=== PATIENT | female | born 1975 | race Caucasian/White ===

== ENCOUNTER 2019-09-15 22:43 | Emergency (ER) | payer BC ==
[~2019-09-15] VITALS: Ht 162.6 cm; Wt 86.2 kg
--- OUTSIDE RECORDS SUMMARY | 2019-09-15 23:26 | XMS REPORT | Clinical Summary ---
Author Author ANTONY [facility] Organization [facility] Address Unknown Phone Unavailable Care Team Providers Care Supervisor Contingents Name Role Phone Pcp, No PCP Unavailable Allergies No Known Allergies Medications End Date Status Medication Sig Dispensed Refills Start Date Active promethazine-codeine 5 mLs daily . 0 (PHENERGAN WITH CODEINE) 9 6.25-10 mg/5 mL syrup Active predniSONE (DELTASONE) 20 Take 20 mg by 0 /2 7/201 MG tablet mouth daily. 8 Active acetaminophen-codeine Take 1 tablet 0 04/15/19 1 (TYLENOL #3) 300-30 mg by mouth 9 per tablet daily . Active amoxicillin-clavulanate Take 1 tablet 0 (AUGMENTIN) 875-125 mg by mouth 2 9 per tablet (two) times daily . Active EPINEPHrine (EPIPEN) 0.3 Inject 0.3 1 Device 0 0 mg/0.3 mL AtIn mLs (0.3 mg 9 total) intramuscular ly as needed. 04/15/2019 albuterol (PROVENTIL) 2.5 Take 3 mLs 75 mL 0 mg /3 mL (0.083 %) (2.5 mg 9 nebulizer solution total) by nebulization every 6 (six) hours as needed for Wheezing. Active Problems Not on file Social History Date Tobacco Use Types Packs/Day Years Used Current Every Day Smoker Cigarettes 0.5 Alcohol Use Drinks/Week oz/Week Comments No Sex Assigned at Date Recorded Not on file Industry Job Start Date Occupation Not on file Not on file Not on file Travel End Travel History Travel Start No recent travel history available. Last Filed Vital Signs Not on file Plan of Treatment Not on file Results Not on fileafter 09/14/2018 Insurance Payer Benefit Subscriber ID Type Phone Address Plan / Group BLUE CROSS/BLUE SHIELD BCBS OS xxxxxxxxxxxx PPO [phone] POS/PPO/[place] [address] O CIGNA - MGD CARE CIGNA xxxxxxxxx HMO/POS HMO/POS/OP EN ACCESS [phone] [id number] (Home) [place], [place] [address]
--- OUTSIDE RECORDS SUMMARY | 2019-09-15 23:26 | XMS REPORT | Continuity of Care Document ---
Author Author [facility] [place] [place] t Organization [facility] Address [address] [place] [address] Phone Unavailable Care Team Providers Care Pompom Maker Name Role Phone Pcp, No PCP Unavailable Abril MORGAN, Graham Poon Attphys [phone] Payers Payer Name Policy Type Policy Number Effective Date Expiration Date S [facility] BCBSBCBS OUT OF STATExxxxxxxxxxxx9-PresentPPO xxxxxxxxxxxx 2016 00:00:00 Calin Joel Problems Condition Name Condition Details Condition Category Status Onset Date Resolution Date Last Treatment Date Treating Clinician Comments Source Subclinical hyperthyroidism Subclinical hyperthyroidism Disease Active 2019-04-09 00:00:00 Calin Joel Multinodular goiter Multinodular goiter Disease Active 2019-01-26 00:00 :00 Calin Joel Abnormal results of thyroid function studies Abnormal results of thyroid function studies Disease Active 2019-01-26 00:00:00 Calin Joel Acute Pancreatitis Acut e Pancreatitis Active 11/28/2012 [facility] Problem Active 2012-11-28 16:49:24 [facility] Allergies, Adverse Reactions, Alerts Allergy Name Allergy Type Status Severity Reaction(s) Onset Date Inacti ve Date Treating Clinician Comments Source morphine DA Active U 2017-09-06 00:00:00 [facility] No Known Drug Allergies No Known Drug Allergies Active [facility] Family History Family Member Diagnosis Comments Start Date Stop Date Source Maternal aunt Breast cancer Calin Joel Maternal grandmother Breast cancer [facility] Natural mother Breast cancer [facility] Social History Social Habit Start Date Stop Date Quantity Comments Source History of tobacco use Cigarette Smoker [facility] History SDOH Alcohol Std Drinks [facility] History SDOH Alcohol Binge [facility] Sex Assigned At Александр mel [facility] Alcohol intake 2019-04-09 00:00:00 2019-04-09 00:00:00 Current drinker of alcohol (finding) [facility] History SDOH Alcohol Frequency 2019-01-26 00:00:00 2019-01-26 00:00:0 0 4 Calin Mccoyist Social History 2012-11-28 16:49:24 2012-11-28 16:49:24 [facility] Cigarettes smoked current (pack per day) - Reported 00:00:00 2012-09-20 00:00:00 [facility] Smoking Status Start Date Stop Date Source Current some day smoker 2019-04-09 00:00:00 Vane Joel Current every day smoker 2012-09-20 00:00:[address] [facility] Medications Ordered Medication Name Filled Medication Name Start Date Stop Da te Current Medication? Ordering Clinician Indication Dosage Frequency Signature (SIG) Comments Components Source dexAMETHasone (DECADRON) 1 MG tablet 2019-04-09 00:00: 00 2019-04-09 23:59:00 No Endocrine problem 1mg Take 1 tab let (1 mg total) by mouth once for 1 dose. Take 1 mg dexamethasone at 11 PM and check cortisol level next day at 8 AM Calin Joel EPINEPHrine (EPIPEN) 0.3 mg/0.3 mL AtIn 2018-04-15 00:00:00 Yes .3mg Inject 0.3 mLs (0.3 mg total) intramuscularly as needed. [facility] albuterol (PROVENTIL) 2.5 mg /3 mL (0.083 %) nebulizer solut ion 2018-04-15 00:00:00 2019-04-15 23:59:00 No 2.5mg Take 3 mLs (2.5 mg total) by nebulization every 6 (six) hours as needed for Wheezing. [facility] promethazine-codeine (PHENERGAN WITH CODEINE) 6.25-10 mg/5 m L syrup 2018-04-14 00:00:00 Yes 5mL QD 5 mLs daily . [facility] acetaminophen-codeine (TYLENOL #3) 300-30 mg per tablet 2018-04-14 00:00:00 Yes 1{tbl} QD Take 1 tablet by mouth daily . [facility] amoxicillin-clavulanate (AUGMENTIN) 875-125 mg per tablet 2018-04-14 00:00:00 Yes 1{tbl} Q.5D Take 1 tablet by mouth 2 (two) t imes daily . [facility] predniSONE (DELTASONE) 20 MG tablet 2018-01-07 00:00:00 Yes 20mg QD Take 20 mg by mouth daily. [facility] Hydrocodone-Acetaminophen 5-325 MG Oral Tablet 2012-11-28 05:00: 00 Yes ; Start Date: 11/28/2012 (Active) Diane Jackson No Active Medications 2012-11-07 18:48:09 Yes No Active Medications [facility] Vital Signs Vital Name Observation Time Observation Value Comments Source Systolic blood pressure 2019-04-09 08:37:00 123 mm[Hg] Calin Joel Diastolic blood pressure 2019-04-09 08:37:00 86 mm[Hg] Calin Joel Heart rate 2019-04-09 08:37:00 80 /min Calin Joel Body temperature 2019-04-09 08:37:00 36.61 Alice Vane Joel Respiratory rate 2019-04-09 08:37:00 14 /min Vane Joel Body height 2019-04-09 08:37:00 162.6 cm Calin Joel Body weight 2019-04-09 08:37:00 94.802 kg Calin Joel BMI 2019-04-09 08:37:00 35.87 kg/m2 Calin Joel Oxygen saturation in Arterial blood by Pulse oximetry 04-09 08:37:00 97 /min [place] [facility] Procedures Procedure Date / Time Performed Performing Clinician Sourc e ADRENOCORTICOTROPIC HORMONE 2019-04-13 08:17:00 Cleve Samuels CORTISOL LEVEL, AM 2019-04-13 08:17:00 Cleve Samuelston [facility] HEMOGLOBIN A1C 2019-04-13 08:17:00 Cleve Samuels on [facility] CORTISOL LEVEL, URINE, FREE 2019-04-12 09:00:00 Cleve Samuels THYROID STIMULATING HORMONE 2019-03-31 11:29:00 Cleve Samuels T4, FREE 2019-03-31 11:29:00 Cleve Samuels on [facility] T3 2019-03-31 11:29:00 Cleve Samuels on [facility] THYROID PEROXIDASE ANTIBODY 2019-03-31 11:29:00 Cleve Samuels T4 2019-03-31 11:19:00 Cleve Samuels on [facility] US THYROID BIOPSY FNA 2019-03-31 11:07:23 Cleve Samuels BRAF, PCR 2019-03-31 11:03:00 Cleve Samuels on [facility] CYTOLOGY (NON-GYNECOLOGICAL) REQUEST 2019-03-31 11:03:00 Cleve Samuels THYROID STIMULATING IMMUNOGLOBULIN 2019-03-31 00:00:00 Bud Samuels US THYROID EXTERNAL STUDY 2018-12-09 16:30:00 Cleve Samuels Plan of Care Planned Activity Planned Date Details Comments Source Future Scheduled Test 2022-03-31 00:00:00 Screening for esme gnant neoplasm of cervix (procedure) [code = 211690788] Calin oglesby Future Scheduled Test 2019-09-12 00:00:00 INFLUENZA VACCINE [code = INFLUENZA VACCINE] Calin Joel Future Scheduled Test 2012-11-28 16:49:24 Plan of Care [code = 1877 6-5] [facility] Encounters Start Date/Time End Date/Time Encounter Type Admission Type [facility] Care Department Encounter ID Source 2019-04-09 00:00:2019-04-09 00:00:00 Outpatient [facility] [id number] Calin Joel 2019-03-31 00:00:00 2019-03-31 00:00:00 Outpatient [facility] [id number] Calin Joel 2019-02-19 00:00:00 2019-02-19 00:00:00 Outpatient [facility] [id number] Calin Joel 2012-11-28 11:49:24 2012-11-28 11:49:24 Outpatient NOEMI NOEMI [id number] 2012-11-07 13:48:10 2012-11-07 13:48:09 [id number] Results Test Description Test Time Test Comments Results Result Comments Source - HEPA IMAG INCL GB W PHA 2019-08-06 15:23:00 Patient Name: FELICITA BARLOW Unit No: [id number] EXAMS: CPT CODE: [id number] HEPA IMAG INCL GB W PHA [id number] EXAMINATION: - HEPA IMAG INCL GB W PHA. LOCATION: B2. HISTORY: R10.9, R1 9.7. COMPARISON: HIDA scan dated 09/07/2017. TECHNIQUE: 8.0 mCi technetium 99m Mebrofenin was administered intravenously. Dynamic imaging over the abdomen was performed in the anterior projection. 8 ounces of Ensure was then given orally and imaging continued for 30 minutes. Gallbladder emptying time activity curves were generated and gallbladder ejection fraction was calculated. FINDINGS: There is good concentration of radiopharmaceutical by the hepatocytes with good excretion into the small bowel and gallbladder indicative of patent common bile duct and cystic duct. The gallbladder ejection fraction is 60%. IMPRESSION: Patent cystic and common bile ducts with no scintigraphic evidence of acute cholecystitis. Normal gallbladder ejection fraction. at 1523 Reported and signed by: Alejandro Canada MD Nuclear Medicine Cardiology exams performed on dual head cameras with appropriate software for processing and reporting. CC: Isidro Espinal [facility] NAME: FELICITA BARLOW [address] [place] [address] PHYS: Isidro R[place]Mer[place], [place] : 1975 AGE: 44 SEX: F [id number] LOC: [id number] PHONE #: EXAM DATE: 08/06/2019 STATUS: REG CLI FAX #: [phone] RAD NO: DC Dt: PAGE 1 Signed Report Patient Name: FELICITA BARLOW Unit No: [id number] EXAMS: CPT CODE: [id number] HEPA IMAG INCL GB W PHA [id number] <Continued> Technologist: Mali Rich [facility] Transcribed Date/Time: 08/06/2019 (0427) - [email or web address] Orig Print D/T: S: 08/06/2019 (5593) 250 Imaging NAME: FELICITA BARLOW [address] [place] [address] PHYS: Isidro R[place]Mer[place], [place] : 1975 AGE: 44 SEX: F [phone] LOC: [id number] PHONE #: [phone] EXAM DATE: 08/06/2019 STATUS: REG CLI FAX #: [phone] RAD NO: DC Dt: PAGE 2 Signed Report Cortisol level, urine, free 2019-04-17 12:09:00 Test Item Cortisol, F, ug/l, u (test code = 61845-0) 6 ug/L Undefined This test was developed and its performance characteristicsdetermined by [facility]. It has not been cleared or approvedby the Food and Drug Administration.Total Volume: 2200 mL Cortisol, F, ug/24hr. u (test code = 2147-7) 13 6- 42 ug/ 24 hr JAYDEN (test code = JAYDEN) Performed at: [address] [place] [address] [id number] Director: Denisa Santos MD, Phone: [phone] [facility]emoglobin [id number] 13:08:00* Test Item Value Reference Range Interpretation Comments Hemoglobin A1C (test code = 4548-4) 5.5 % 4.8-5.6 Prediabetes: 5.7 - 6.4 Diabetes: >6.4 Glycemic control for adults with diabetes: <7.0 JAYDEN (test code = JAYDEN) Performed at: [address] [place] [address] [id number] Director: Altaf Brown MD, Phone: [phone] [facility] MethodistAdrenocorticotropic [id number] 13:08:00* Test Item Value Reference Range Interpretation Comments Adrenocorticotropic hormone (test code = 2141-0) 24.3 pg/mL 7.2-6 3.3 ACTH reference interval for samples collected between 7 and 10 AM. JAYDEN (test code = JAYDEN) Performed at: [address] [place] [address] [id number] Director: Altaf Brown MD, Phone: [phone] [facility] MethodistCortisol level, [id number] 13:08:00* Test Item Value Reference Range Interpretation Comments Cortisol, AM (test code = 9813-7) 24.5 ug/dL 6.2-19.4 H JAYDEN (test code = JAYDEN) Performed at: [address] [place] [address] [id number] Director: Altaf Brown MD, Phone: [phone] Lab Interpretation (test code = 48366-2) Abnormal [facility] MethodistCytology (non-gynecological) [id number] 15:36:45* Test Item Value Reference Range Interpretation Comments Case number (test code = [id number]) [id number] Cytology (non-gynecological) report (test code = 1178) See link below for PDF Lab Report Result status (test code = 5128935) This is Supplement al Report for [id number] aClin Hahn, [id number] 13:46:32* Test Item Value Reference Range Interpretation Comments BRAF, PCR (test code = 29307-6) Wild Type BRAF, PCR (test code = 5761) See link below for PDF Lab Report JAYDEN (test code = JAYDEN) METHODOLOGY:For surgical spe cimens, manual microdissection was performed on a cytolyt specimen. Specimens with the minimum of 50% tumor cells in a microdissection target are accepted for the analysis. DNA was amplified with primers flanking the reported gene sequences. DNA sequences were determined on the [employer] MassARRAY using MALDI-TOF mass spectrometry. [facility] MethodistThyroid stimulating [id number] 07:09:00* Test Item Value Reference Range Interpretation Comments Thyroid stimulating immunoglobulin (test code = 28259-5) <0.10 0.00- 0.55 IU/L JAYDEN (test code = JAYDEN) Performed at: [address] [place] [address] [id number] Director: Denisa Santos MD, Phone: [phone] [facility] YazdanismT4, [id number] 10:10:00* Test Item Value Reference Range Interpretation Comments T4, free (test code = 3024-7) 1.70 ng/dL 0.82-1.77 JAYDEN (test code = JAYDEN) Performed at: [address] [place] [address] [id number] Director: Altaf Brown MD, Phone: [phone] [facility] MethodistThyroid stimulating [id number] 10:10:00* Test Item Value Reference Range Interpretation Comments TSH (test code = 65501-9) 0.295 0.450- 4.500 uIU/mL L JAYDEN (test code = JAYDEN) Performed at: [address] [place] [address] [id number] Director: Altaf Brown MD, Phone: [phone] Lab Interpretation (test code = 60414-0) Abnormal [facility] [id number] 10:10:00* Test Item Value Reference Range Interpretation Comments T3 (test code = 3053-6) 135 ng/dL 71-180 JAYDEN (test code = JAYDEN) Performed at: - [facility] [id number] Director: Altaf Brown MD, Phone: [phone] [facility] YazdanismThyroperoxidase [id number] 10:10:00* Test Item Value Reference Range Interpretation Comments Thyroperoxidase Ab (test code = 8099-4) 9 0- 34 IU/mL JAYDEN (test code = JAYDEN) Performed at: [facility] [id number] Director: Altaf Brown MD, Phone: [phone] [facility]danismUS Thyroid Biopsy [id number] 11:16:40Hm Interface, Radiology Results 03/31/2019 11:19 AM CSTProcedure: Ultrasound-guided left thyroid nodule biopsyClinical indication: E04.2 Nontoxic multinodular goiterAnesthesia: Lidocaine 1% was used for local anesthetic.Sedation: None.Technique: Written informed consent was obtained prior to the procedure. T he patient was placed in a supine position and ultrasound imaging over the left lobe of the thyroid gland was performed, demonstrating a heterogeneous solid nod ule measuring 1.4 cm in greatest dimension. The left neck was sterilely prepared and draped in the routine manner. Lidocaine 1% was used for local anesthetic. U sing real-time ultrasound guidance, fine-needle aspirations were obtained from t he left thyroid nodule with five 25-gauge needles. Initial analysis by pathology deemed the specimens adequate. The patient tolerated the procedure well.Complic ations: NoneImpression: Successful ultrasound-guided left thyroid nodule biopsy, as described above.[id number] [facility] Thyroid External Study 2019-02-26 09:08:25This exam was not acquired at a [facility] facility and has not been interpreted by a [facility] Provider. The exam was imported into our imaging system.[facility] DariusistRRO, CHEST, 2 [id number] 18:53:00Reason for exam:->coughFINAL REPORT INDICATION: cough COMPARISON: None TECHNIQUE: Frontal and lateral views of the chest. FINDINGS: Lungs and pleura: Clear lungs. No effusion.Heart and mediastinum: Normal heart size. Unremarkable mediastinal contours.Osseous structures: No acute abnormality.Additional findings: None. IMPRESSION: No acute intrathoracic abnormality. Signed: JR Argueta Robert MDReport Verified Date/Time: 04/15/2018 18:53:38 Reading Location: [facility] B1 C013V Neuro Reading Room U/S, ABDOMINAL, [id number] 13:39:00Reason for Exam:->Abnormal results of liver function studiesFINAL REPORT Abdominal ultrasound Clinical History: Abnormal liver function test Discussion: Sonographic evaluation of the the abdomen is performed. The liver has normal size and measures 17.7 cm in length. There is elevated liver echogenicity, without focal mass. There is no intra or extrahepatic biliary dilatation. The common bile duct measures 3 mm. The gallbladder has normal appearance, without wall thickening, stones, or pericholecystic fluid. The main portal vein diameter is normal, measuring 11 mm. The pancreatic head, body, and proximal tail demonstrate no abnormality. There is no ascites. The right and the left kidney measure 10.0 and 10.8 cm in length respectively and are normal in size. There is no renal mass, hydronephrosis, or shadowing renal calculus. The spleen measures 7.6 cm in length and is normal in echotexture. Segments of the inferior vena cava and aorta visualized demonstrate no abnormality. Impression: 1. Elevated liver echogenicity most consistent with fatty infiltration. 2. The hepatic elasticity is 1.41 m/s which corresponds to normal to mild fibrosis. Signed: Maritza Arreguinort Verified Date/Time: 01/08/2018 13:39:52 Reading Location: [facility] Radiology Reading Room
--- OUTSIDE RECORDS SUMMARY | 2019-09-15 23:26 | XMS REPORT | Continuity of Care Document ---
Author Author [facility] Organization [facility] Address Unknown Phone Unavailable Care Team Providers Care Maintenance Scheduler Name Role Phone [employer] Unavailable Un available Problems Problem Status Onset Date Classification Date Reported Comments Source Acute Pancreatitis Active 11/28/2012 [facility] Medications Medication Details Route Status Patient Instructions Ordering Provider Order Date Source Hydrocodone-Acetaminophen 5-325 MG Oral Tablet ; Start Date: 11/28/2012 (Active) Active 11/28/2012 [facility] No Active Medications No Activ e Medications Active [facility] Allergies, Adverse Reactions, Alerts Substance Category Reaction Severity Reaction type Status Date Reported Comments Source No Known Drug Allergies drug a llergy drug aller gy Active [facility] Immunizations No Data Provided for This Section Results No Data Provided for This Section Pathology Reports No Data Provided for This Section Diagnostic Reports No Data Provided for This Section Consultation Notes No Data Provided for This Section Discharge Summaries No Data Provided for This Section History and Physicals No Data Provided for This Section Vital Signs No Data Provided for This Section Encounters Location Location Details Encounter Type Encounter Number Reason For Visit Attending Provider ADM Date DC Date Status Source AUDIT [id number] 11/07/2012 11/07/2012 [facility] AUDIT [id number] 11/28/2012 11/28/2012 [facility] Procedures No Data Provided for This Section Assessment and Plan No Data Provided for This Section Plan of Care Plan of Care Date Source [U] XRAY ABDOMEN (KUB) 1 [place] [address] Routine 11/28/2012 [facility] Social History Social History Date Source Current Smoker (305.1); (Active) 11/28/2012 [facility] Family History No Data Provided for This Section Advance Directives Order Name Results Value Date Source Advance Directives Advance Dir ectives No Advance Directives available. 11/28/2012 [facility] Advance Directives Advance Dir ectives No Advance Directives available. 11/07/2012 [facility] Functional Status No Data Provided for This Section
--- OUTSIDE RECORDS SUMMARY | 2019-09-15 23:26 | XMS REPORT | Clinical Summary ---
Author Author Calin [facility] Organization [facility] Address Unknown Phone Unavailable Care Team Providers Care Cytotechnologist/Histotechnologist Name Role Phone Angel Gong PCP Allergies No Known Allergies Medications End Date Status Medication Sig Dispensed Refills Start Date 04/09/2019 dexAMETHasone (DECADRON) Take 1 tablet 1 tablet 0 1 MG tabletIndications: (1 mg total) 0 Abnormal weight gain, by mouth once Endocrine problem for 1 dose. Take 1 mg dexamethasone at 11 PM and check cortisol level next day at 8 AM Active Problems Problem Noted Date Subclinical hyperthyroidism 04/09/2019 Multinodular goiter 01/26/2019 Abnormal results of thyroid function studies 019 Encounters Care Team Description Date Type Specialty Cleve Samuels MD 05/07/2019 Telephone Endocrinology Cleve Samuels MD 04/13/2019 Telephone Endocrinology Cleve Samuels MD Multinodular goiter (Primary Dx); Subclinical hyperthyroidism; Abnormal weight gain; Endocrine problem; History of gestational diabetes 04/09/2019 Office Visit Endocrinology Cleve Samuels MD 04/02/2019 Telephone Endocrinology Cleve Samuels MD Multinodular goiter 03/31/2019 Hospital Radiology Encounter Cleve Samuels MD Multinodular goiter 02/19/2019 Hospital Radiology Encounter Cleve Samuels MD Multinodular goiter (Primary Dx); Abnormal results of thyroid function studies 01/26/2019 Office Visit Endocrinology after 09/14/2018 Family History Medical History Relation Name Comments Breast cancer Maternal Aunt Breast cancer Maternal Grandmother Breast cancer Mother Relation Name Status Comments Maternal Aunt Maternal Grandmother Mother Social History Date Tobacco Use Types Packs/Day Years Used Current Some Day Smoker Smokeless Tobacco: Never Used Drinks/Week oz/Week Comments Alcohol Use Yes Alcohol Habits Answer Date Recorded How often do you have a drink containing alcohol? 2-3 time s a week 01/26/2019 How many drinks containing alcohol do you have on No t asked a typical day when you are drinking? How often do you have six or more drinks on one Not asked occasion? Sex Assigned at Date Recorded Not on file Industry Job Start Date Occupation Not on file Not on file Not on file Travel End Travel History Travel Start No recent travel history available. Last Filed Vital Signs Reading Time Taken Comments Vital Sign 123/86 04/09/2019 8:37 AM SCIENTIFIC ILLUSTRATOR Blood Pressure 80 04/09/2019 8:37 AM SCIENTIFIC ILLUSTRATOR Pulse 36.6 C (97.9 F) 04/09/2019 8:37 AM SCIENTIFIC ILLUSTRATOR Temperature 14 04/09/2019 8:37 AM SCIENTIFIC ILLUSTRATOR Respiratory Rate 97% 04/09/2019 8:37 AM SCIENTIFIC ILLUSTRATOR Oxygen Saturation - - Inhaled Oxygen Concentration 94.8 kg (209 lb) 04/09/2019 8:37 AM SCIENTIFIC ILLUSTRATOR Weight 162.6 cm (5' 4") 04/09/2019 8:37 AM SCIENTIFIC ILLUSTRATOR Height 35.87 04/09/2019 8:37 AM SCIENTIFIC ILLUSTRATOR Body Mass Index Plan of Treatment Health Maintenance Due Date Last Done Comments INFLUENZA VACCINE 09/12/2019 CERVICAL CANCER SCREENING 03/31/2022 03/31/2019, 03/31/2019, 03/31/2019 Procedures Comments Procedure Name Priority Date/Time Associated Diag nosis HEMOGLOBIN A1C Routine 04/13/2019 History of gest ational 8:17 AM SCIENTIFIC ILLUSTRATOR diabetes CORTISOL LEVEL, AM Routine 04/13/2019 Abnormal we ight gain 8:17 AM SCIENTIFIC ILLUSTRATOR Endocrine problem ADRENOCORTICOTROPIC Routine 04/13/2019 Abnormal w eight gain HORMONE 8:17 AM SCIENTIFIC ILLUSTRATOR Endocrine problem CORTISOL LEVEL, URINE, Routine 04/12/2019 Abnorma l weight gain FREE 9:00 AM SCIENTIFIC ILLUSTRATOR Endocrine problem THYROID PEROXIDASE Routine 03/31/2019 Multinodula r goiter ANTIBODY 11:29 AM SCIENTIFIC ILLUSTRATOR Abnormal results of thyroid function studies T3 Routine 03/31/2019 Multinodular go iter 11:29 AM SCIENTIFIC ILLUSTRATOR Abnormal results of thyroid function studies T4, FREE Routine 03/31/2019 Multinodular go iter 11:29 AM SCIENTIFIC ILLUSTRATOR Abnormal results of thyroid function studies THYROID STIMULATING Routine 03/31/2019 Multinodul ar goiter HORMONE 11:29 AM SCIENTIFIC ILLUSTRATOR T4 Routine 03/31/2019 Multinodular go iter 11:19 AM SCIENTIFIC ILLUSTRATOR Abnormal results of thyroid function studies US THYROID BIOPSY FNA Routine 03/31/2019 Multinod ular goiter 11:07 AM SCIENTIFIC ILLUSTRATOR CYTOLOGY Routine 03/31/2019 (NON-GYNECOLOGICAL) 11:03 AM SCIENTIFIC ILLUSTRATOR REQUEST CYTOLOGY Routine 03/31/2019 (NON-GYNECOLOGICAL) 11:03 AM SCIENTIFIC ILLUSTRATOR REQUEST CYTOLOGY Routine 03/31/2019 (NON-GYNECOLOGICAL) 11:03 AM SCIENTIFIC ILLUSTRATOR REQUEST BRAF, PCR Routine 03/31/2019 11:03 AM SCIENTIFIC ILLUSTRATOR THYROID STIMULATING Routine 03/31/2019 Multinodul ar goiter IMMUNOGLOBULIN 12:00 AM SCIENTIFIC ILLUSTRATOR Abnormal results of thyroid function studies US THYROID EXTERNAL STUDY Routine 12/09/2018 Mult inodular goiter 4:30 PM CDT after 09/14/2018 Results * Cortisol level, AM (04/13/2019 8:17 AM SCIENTIFIC ILLUSTRATOR) Cortisol, AM 24.5 (H) 6.2 - 19.4 ug/dL [facility] Specimen Blood Narrative Performed At Performed at: [facility] [address] Senior Engineer: Altaf Brown MD, Phone: [phone] Performing Organization Address City/State/[facility] Ph one Number [facility] * Adrenocorticotropic hormone (04/13/2019 8:17 AM SCIENTIFIC ILLUSTRATOR) Adrenocorticotr 24.3Comment: ACTH reference 7.2 - 63.3 pg/mL [facility] opic hormone interval for samples collec amanda between 7 and 10 AM. Specimen Blood Narrative Performed At Performed at: Lab[address] [address] Senior Engineer: Altaf Brown MD, Phone: [phone] Performing Organization Address [facility] * Hemoglobin A1c (04/13/2019 8:17 AM SCIENTIFIC ILLUSTRATOR) [facility] Hemoglobin A1C 5.5 4.8 - 5.6 % [facility] Comment: Prediabetes: 5.7 - 6.4 Diabetes: >6.4 Glycemic control for adults with diabetes: <7.0 Specimen Blood Narrative Performed At Performed at: [address] [address] Senior Engineer: Altaf Brown MD, Phone: [phone] Performing Organization Address [facility] * Cortisol level, urine, free (04/12/2019 9:00 AM SCIENTIFIC ILLUSTRATOR) [facility] Cortisol, F, 6 Undefined ug/L [facility] ug/l, u Comment: This test was developed and its performance characteristics determined by [facility]. It has not been cleared or approved by the Food and Drug Administration. Total Volume: 2200 mL Cortisol, F, 13 6 - 42 ug/24 hr [facility] ug/24hr. u Specimen Urine Narrative Performed At Performed at: [address] [address] Senior Engineer: Denisa Santos MD, Phone : [phone] Performing Organization Address [facility] * Thyroperoxidase antibody (03/31/2019 11:29 AM SCIENTIFIC ILLUSTRATOR) [facility] Thyroperoxidase 9 0 - 34 IU/mL [facility] Ab Specimen Blood Narrative Performed At Performed at: [address] [address] Senior Engineer: Altaf Brown MD, Phone: [phone] Performing Organization Address [facility] * T3 (03/31/2019 11:29 AM SCIENTIFIC ILLUSTRATOR) [facility] T3 135 71 - 180 ng/dL [facility] Specimen Blood Narrative Performed At Performed at: - [facility] [address] [address] Senior Engineer: Altaf Brown MD, Phone: [phone] Performing Organization Address [place]/[facility] one Number [facility] * Thyroid stimulating hormone (03/31/2019 11:29 AM SCIENTIFIC ILLUSTRATOR) TSH 0.295 (L) 0.450 - 4.500 uIU/mL [facility] Specimen Blood Narrative Performed At Performed at: [address] [address] Senior Engineer: Altaf Brown MD, Phone: [phone] Performing Organization Address [place] * T4, free (03/31/2019 11:29 AM SCIENTIFIC ILLUSTRATOR) T4, free 1.70 0.82 - 1.77 ng/dL [facility] Specimen Blood Narrative Performed At Performed at: [address] [id number] Senior Engineer: Altaf Brown MD, Phone: [phone] Performing Organization Address [facility] one Number [facility] * T4 (03/31/2019 11:19 AM SCIENTIFIC ILLUSTRATOR) T4 9.7 4.5 - 12.0 ug/dL [facility] Specimen Blood Narrative Performed At Performed at: [address] [id number] Senior Engineer: Altaf Brown MD, Phone: [phone] Performing Organization Address [facility] * US Thyroid Biopsy FNA (03/31/2019 11:07 AM SCIENTIFIC ILLUSTRATOR) Specimen Narrative Performed At Procedure: Ultrasound-guided left thyroid nodule biop sy [facility] Clinical indication: E04.2 Nontoxic mul tinodular goiter Anesthesia: Lidocaine 1% was used for l ocal anesthetic. Sedation: None. Technique: Written informed consent was obtained prior to the procedure. The patient was placed in a supine position and ultrasound imaging over the left lobe of the thyroid gland was performed , demonstrating a heterogeneous solid nodule measuring 1.4 cm in greatest dimension. The left neck wa s sterilely prepared and draped in the routine manner. Lidocaine 1% was used f or local anesthetic. Using real-time ultrasound guidance, fine-needle aspira tions were obtained from the left thyroid nodule with five 25-gauge needles. Initial analysis by p athology deemed the specimens adequate. The patient tolerated the procedure wel l. Complications: None Impression: Successful ultrasound-guided left thyro id nodule biopsy, as described above. [id number] Procedure Note Interface, Radiology Results Incoming - 03/31/2019 11:19 AM SCIENTIFIC ILLUSTRATOR Procedure: Ultrasound-guided left thyroid nodule biopsy Clinical indication: E04.2 Nontoxic multinodular goiter Anesthesia: Lidocaine 1% was used for local anesthetic. Sedation: None. Technique: Written informed consent was obtained prior to the procedure. The patient was placed in a supine position and ultrasound imaging over the left lobe of the thyroid gland was performed, demonstrating a heterogeneous solid nodule measuring 1.4 cm in greatest dimension. The left neck was sterilely prepared and draped in the routine manner. Lidocaine 1% was used for local anesthetic. Using real-time ultrasound guidance, fine-needle aspirations were obtained from the left thyroid nodule with five 25-gauge needles. Initial analysis by chance thology deemed the specimens adequate. The patient tolerated the procedure well. Complications: None Impression: Successful ultrasound-guided left thyroid nodule biopsy, as described above. [facility]-[id number] Performing Organization Address [place]/[facility] [place] [address] * BRAF, PCR (03/31/2019 11:03 AM SCIENTIFIC ILLUSTRATOR) BRAF, PCR Wild Type [facility] BRAF, PCR See link below for PDF [facility] ReportComment: Case Number: [id number] Specimen Narrative Performed At METHODOLOGY: [facility] For surgical specimens, manual microdissection was pe rformed on a [facility] specimen. Specimens with the minimum of 50% tumor cells in a microdissection target are accepted for the analysis. D NA was amplified with primers flanking the reported gene sequences. DNA sequences were determine d on the [employer] MassARRAY using MALDI-TOF mass spectrometry. Performing Organization Address [place] Ph one Number [facility] DEPARTMENT OF [address] [place] [address] PATHOLOGY AND GENOMIC MEDICINE [address] * Cytology (non-gynecological) request (03/31/2019 11:03 AM SCIENTIFIC ILLUSTRATOR) Only the most recent of 3 results within the time period is included. [facility] DEPARTMENT OF PATHOLOGY AND GENOMIC MEDICINE Cytology See link below for PDF Lab T DEPAR TMENT (non-gynecologi Report OF PATHOLOGY juan m) report AND GENOMIC MEDICINE Result status This is Supplemental Report [facility] DEPA RTMENT for [id number] OF PATHOLOGY AND GENOMIC MEDICINE Specimen Performing Organization Address City/State/[facility] Ph one Number [facility] [place] [address], [address] [place] [address] PATHOLOGY AND GENOMIC MEDICINE * Thyroid stimulating immunoglobulin (03/31/2019 12:00 AM SCIENTIFIC ILLUSTRATOR) Thyroid <0.10 0.00 - 0.55 IU/L [facility] stimulating immunoglobulin Specimen Blood Narrative Performed At [facility]formed at[facility] - [facility] [address] [place] [id number] Senior Engineer: Denisa Santos MD, Phone : [phone] Performing Organization Address City/State/Zipcode Ph one Number [facility] * US Thyroid External Study (12/09/2018 4:30 PM CDT) Specimen Narrative Performed At This exam was not acquired at a Confucianist facility an d has not been [facility] interpreted by a Confucianist Provider. The exam was imported into our imaging system. Performing Organization Address City/State/Zipcode Ph one Number [facility] [address] [place] [address] after 09/14/2018 Insurance Type Payer Benefit Subscriber ID Effective Phone Address Plan / Dates Group PPO BCBS BCBS OUT xxxxxxxxxxxx 2016-P OF STATE resent Advance Directives For more information, please contact: [phone] Patient Office Worker Explanation Type Date Recorded Advance Directives, 03/31/2019 9:31 AM Living Will and Medical Power of Media Senior Recruiter
--- OUTSIDE RECORDS SUMMARY | 2019-09-15 23:26 | XMS REPORT ---
Author Author FELICITA Pimentel Organization Unknown Address Unknown Phone Care Team Providers Care Rug Sample Beveler Name Role Phone Brandi Pimentel PP Reason for Referral No Reason for Referral was given. History of Present Illness No HPI available. Problems * Normal Routine History And Physical Adult (V70.0); (Active) * Acute Pancreatitis (577.0); (Active) Medication * No Active Medications Allergies and Adverse Reactions * No Known Drug Allergies (Active) Past Medical History * No Significant Medical History Social History * Current Smoker (305.1); (Active) Advance Directives * No Advance Directives available. Encounters * AUDIT 11/07/2012
[2019-09-15] MEDS ORDERED: ONDANSETRON HCL INJ 2MG/ML 2ML 2 MG/ML VIAL IV STA (23:43)
[2019-09-15] MEDS ORDERED: SODIUM CHLORIDE 0.9% 1000ML 1,000 ML IV STA (23:43)
[2019-09-15] MEDS ORDERED: MORPHINE SULFATE INJ 4 MG/ML INJ 1ML IV STA (23:43)
--- NOTE | 2019-09-15 23:47 | Emergency Department Note ---
History of Present Illnes History of Present Illness Chief Complaint: Abdominal Complaints History of Present Illness This is a 44 year old female RUQ pain of 5 days duration with n/v/d Patient reports h/o of chronic RUQ pain in the past and has been seen by PCP for same Action Finisher Required: No Onset (how long ago): day(s) (6) Location: RUQ Quality: aching Radiation: Reports non-radiation Severity: moderate Onset quality: gradual Duration (how long): day(s) (5) Timing of current episode: constant Progression: worsening Chronicity: recurrent Relieving factors: none Exacerbating factors: none Associated symptoms: Reports nausea/vomiting; Denies fever/chills Treatments prior to arrival: none (TOM CRUZ DO) Past Medical/Family History Physician Review I have reviewed the patient's past medical and family history. Any updates have been documented here. (TOM CRUZ DO) Past Medical History Recent Fever: No Clinical Suspicion of Infectio: No New/Unexplained Change in Ment: No (TOM CRUZ DO) Social History Smoking Cessation: Current some day smoker Counseling Performed: Yes Alcohol Use: None (TOM CRUZ DO) Review of Systems Review of Systems Constitutional: Reports no symptoms EENTM: Reports no symptoms Cardiovascular: Reports no symptoms Respiratory: Reports no symptoms Gastrointestinal: Reports abdominal pain, Reports nausea, Reports vomiting Genitourinary: Reports no symptoms Musculoskeletal: Reports no symptoms Integumentary: Reports no symptoms Neurological: Reports no symptoms Psychological: Reports no symptoms Endocrine: Reports no symptoms Hematological/Lymphatic: Reports no symptoms (TOM CRUZ DO) Physical Exam Related Data Allergies: Coded Allergies: No Known Allergies (Unverified , 09/16/19) Triage Vital Signs Vital Signs Date Time Temp Pulse Resp B/P (MAP) Pulse Ox O2 Delivery O2 Flow Rate FiO2 09/15/19 22:47 98.0 82 17 134/92 100 Room Air Vital signs reviewed: Yes (TOM CRUZ DO) Physical Exam CONSTITUTIONAL Constitutional: Present morbidly obese HENT HENT: Present normocephalic, Present atraumatic, Present oropharynx clear/moist, Present nose normal HENT L/R: Present left ext ear normal, Present right ext ear normal EYES Eyes: Reports PERRL, Reports conjunctivae normal NECK Neck: Present ROM normal PULMONARY Pulmonary: Present effort normal, Present breath sounds normal CARDIOVASCULAR Cardiovascular: Present regular rhythm, Present heart sounds normal, Present capillary refill normal, Present normal rate GASTROINTESTINAL Abdominal: Present soft, Present tender (RUQ) GENITOURINARY Genitourinary: Present exam deferred SKIN Skin: Present warm, Present dry MUSCULOSKELETAL Musculoskeletal: Present ROM normal NEUROLOGICAL Neurological: Present alert, Present oriented x 3, Present no gross motor or sensory deficits PSYCHOLOGICAL Psychological: Present mood/affect normal, Present judgement normal (TOM CRUZ DO) Results Laboratory Lab results reviewed: Yes (TOM CRUZ DO) Imaging Impressions [place] [address] Patient Name: FELICITA PAGE MR #: [id number] : 1975 Age/Sex: 44/F Req #: [id number] Adm Physician: Ordered by: TOM CRUZ DO Report #: [id number] Location: ER Room/Bed: Procedure: [id number] CT/CT CHEST W Exam Date: Exam Time: REPORT STATUS: Signed EXAM: CT Chest WITH contrast 09/16/2019 5:31 AM INDICATION: ^pulmonary opacificatoin COMPARISON: CT from today TECHNIQUE: Chest was scanned utilizing a multidetector helical scanner from the lung apex through the level of the adrenal glands with administration of IV contrast. Coronal and sagittal reformations were obtained. Routine protocol was performed. IV CONTRAST: 100 mL of Isovue 370 COMPLICATIONS: None RADIATION DOSE: Total DLP: 504.12 mGy*cm Estimated effective dose: (DLP x 0.014 x size factor) mSv CTDIvol has been reviewed. It is below the limits set by the Radiation Protocol Committee (RPC). Dose modulation, iterative reconstruction, and/or weight based adjustment of the mA/kV was utilized to reduce the radiation dose to as low as reasonably achievable. FINDINGS: LINES/ TUBES: None. LUNGS AND AIRWAYS: The lungs are unremarkable. Airways are normal. PLEURA: The pleural spaces are clear. HEART AND MEDIASTINUM: The thyroid gland is normal. No mediastinal, hilar or axillary lymphadenopathy. The heart is normal in size. There is no pericardial effusion. Satisfactory opacification of the pulmonary arteries. No pulmonary emboli. Questioned finding on a recent abdomen and pelvis CT, likely artifactual. UPPER ABDOMEN: Unremarkable. BONES: The visualized bony thorax is within normal limits. SOFT TISSUES: Unremarkable. IMPRESSION: No pulmonary embolus. Signed by: Pham Murray MD on 09/16/2019 6:07 AM Dictated By: PHAM MURRAY MD 6 Transcribed By: SCOOBY on 09/16/19606 COPY TO: TOM CRUZ DO~ [place] [address] Patient Name: FELICITA PAGE MR #: [id number] : 1975 Age/Sex: 44/F Req #: [id number] Adm Physician: Ordered by: TOM CRUZ DO Report #: [id number] Location: ER Room/Bed: Procedure: [id number] CT/CT ABDOMEN/PELVIS W Exam Date: 09/15/19 Exam Time: 2358 REPORT STATUS: Signed EXAM: CT Abdomen and Pelvis WITH contrast INDICATION: ^RUQ pain ^[id number] ^2358 COMPARISON: None. TECHNIQUE: Abdomen and pelvis were scanned utilizing a multidetector helical scanner from the lung base to the pubic symphysis after administration of IV contrast. Coronal and sagittal reformations were obtained. Routine protocol was performed. Scan was performed when during portal venous phase. IV CONTRAST: 100 mL of Isovue 370 ORAL CONTRAST: None COMPLICATIONS: None RADIATION DOSE: Total DLP: 594.4 mGy*cm Estimated effective dose: (DLP x 0.015 x size factor) mSv CTDIvol has been reviewed. It is below the limits set by the Radiation Protocol Committee (RPC). Dose modulation, iterative reconstruction, and/or weight based adjustment of the mA/kV was utilized to reduce the radiation dose to as low as reasonably achievable. FINDINGS: LINES and TUBES: None. LOWER THORAX: Unopacified pulmonary vessel on the most superior image of the study. The remainder of the imaged pulmonary vessels are opacified HEPATOBILIARY: Approximately 1.7 cm hypoattenuating lesion with peripheral enhancement in the right hepatic lobe.. No biliary ductal dilation. GALLBLADDER: Gallbladder is contracted. No pericholecystic inflammatory changes. SPLEEN: No splenomegaly. PANCREAS: No focal masses or ductal dilatation. ADRENALS: No adrenal nodules KIDNEYS/URETERS: Kidneys enhance symmetrically. No hydronephrosis. No cystic or solid mass lesions. No stones. GI TRACT: No abnormal distention, wall thickening, or evidence of bowel obstruction. The appendix is not identified, but no inflammatory changes in the right lower quadrant. Colonic diverticulosis without evidence of acute diverticulitis. Nonspecific hyperdensity within the cecum may represent ingested contents. PELVIC ORGANS/BLADDER: Status post hysterectomy. Urinary bladder is nondistended. LYMPH NODES: No lymphadenopathy. VESSELS: Unremarkable. PERITONEUM / RETROPERITONEUM: No free air or fluid. BONES: Unremarkable. SOFT TISSUES: Unremarkable. IMPRESSION: 1. A single unopacified vessel is partially imaged in the right lower lobe on the most superior slice of the study. While this could be produced by artifact, PE protocol chest CT is recommended to exclude pulmonary embolus. 2. 1.7 cm hypoattenuating lesion with partial peripheral enhancement. This lesion may represent a hepatic hemangioma, but is incompletely characterized on single phase exam. Nonemergent outpatient liver protocol CT or MR is recommended for characterization. 3. Colonic diverticulosis without evidence of acute diverticulitis. Critical results were discussed with Dr. Cruz on 09/16/2019 at 4:20 AM. Signed by: Pham Murray MD on 09/16/2019 4:22 AM Dictated By: PHAM MURRAY MD 1 Transcribed By: SCOOBY on 09/16/19421 COPY TO: TOM CRUZ DO~ (TOM CRUZ DO) Imaging results reviewed: Yes Impressions CT chest normal, no PE (RUBENS PLUMMER MD) Procedures 12 Lead ECG Interpretation ECG Interpretation : ECG: ECG 1 Action Finisher: Interpreted by ED physician Date: Sep 15, 2019 Time: 23:45 Prior ECG tracings: reviewed Rhythm: sinus rhythm Rate: normal BPM: 76 QRS axis: normal ST segments normal: Yes T waves normal: Yes Clinical Impression: normal ECG (TOM CRUZ DO) Assessment & Plan Medical Decision Making MDM 44 yof presents with abdominal pain. CBC, CMP, EKG, , cardiac enzymes, UA and CTS ordered to r/o appendicitis, Acute coronary syndrome, COVID-19 infection diverticulitis, UTI, kidney stone, perforated viscus, obstruction, ischemia, and biliary pathology. Abnormal CT abd/pelvis suggestive of PE and CT chest ordered and reviewed. Plan to discharge to home for UTI (TOM CRUZ DO) Reassessment Reassessment I received report from Dr Cruz, pt S&E, labs & radiology studies reviewed. DC home, abd pain NOS, Tyl #3, Zofran ODT, Ceftin for UTI, has F/U with PCP and GI MD (RUBENS PLUMMER MD) Assessment & Plan Final Impression: (1) UTI (urinary tract infection) (2) Abdominal pain (RUBENS PLUMMER MD) Depart Disposition: HOME, SELF-CARE Medications in the ED Sodium Chloride 1,000 ml @ 0 mls/hr Q0M STAT IV Last administered on 09/16/19at 03:57; Admin Dose 999 MLS/HR; Start 09/15/19 at 23:43; Stop 09/15/19 at 23:45; Status DC Morphine Sulfate 4 mg ONCE STAT IV ; Start 09/15/19 at 23:43; Stop 09/16/19 at 00:09; Status DC Ondansetron HCl 4 mg ONCE STAT IV ; Start 09/15/19 at 23:43; Stop 09/16/19 at 00:09; Status DC Iopamidol 74,000 mg STK-MED ONCE INJ ; Start 09/16/19 at 01:45; Stop 09/16/19 at 01:39; Status DC Sodium Chloride 50 ml @ ud STK-MED ONCE .ROUTE ; Start 09/16/19 at 01:45; Stop 09/16/19 at 01:39; Status DC Morphine Sulfate 4 mg ONCE STAT IV Last administered on 09/16/19at 03:17; Admin Dose 4 MG; Start 09/16/19 at 02:56; Stop 09/16/19 at 03:04; Status DC Ondansetron HCl 4 mg NOW STAT IV Last administered on 09/16/19at 03:17; Admin Dose 4 MG; Start 09/16/19 at 02:56; Stop 09/16/19 at 03:04; Status DC Sodium Chloride 1,000 ml @ ud STK-MED ONCE .ROUTE ; Start 09/16/19 at 04:01; Stop 09/16/19 at 03:55; Status DC Iopamidol 74,000 mg STK-MED ONCE INJ ; Start 09/16/19 at 05:22; Stop 09/16/19 at 05:17; Status DC Ondansetron HCl 4 mg NOW STAT IV ; Start 09/16/19 at 05:15; Stop 09/16/19 at 05:21; Status DC Morphine Sulfate 2 mg NOW STAT IV Last administered on 09/16/19at 05:54; Admin Dose 2 MG; Start 09/16/19 at 05:15; Stop 09/16/19 at 05:21; Status DC Sodium Chloride 50 ml @ ud STK-MED ONCE .ROUTE ; Start 09/16/19 at 05:22; Stop 09/16/19 at 05:17; Status DC Ceftriaxone Sodium 50 ml @ 100 mls/hr ONCE ONCE IV Last administered on 09/16/19at 06:25; Admin Dose 100 MLS/HR; Start 09/16/19 at 06:00; Stop 09/16/19 at 06:29; Status DC (TOM CRUZ DO) TOM CRUZ DO Sep 15, 2019 23:47 RUBENS PLUMMER MD Sep 16, 2019 07:07
[2019-09-16 01:08] LABS: BASOPHILS # (AUTO) 0.2 (0.0-0.1); EOSINOPHILS # (AUTO) 0.3 (0.0-0.4); EOSINOPHILS % 3.6 % (0.0-6.0); HEMATOCRIT 44.5 % (34.2-44.1); LYMPHOCYTES # (AUTO) 2.9 (1.0-3.2); LYMPHOCYTES % 31.1 % (18.0-39.1); MEAN CORPUSCULAR HEMOGLOBIN 33.6 pg (28-32); MEAN CORPUSCULAR HGB CONC 33.7 g/dL (31-35); MEAN CORPUSCULAR VOLUME 99.6 fL (81-99); MONOCYTES % 10.7 % (4.4-11.3); NEUTROPHILS # (AUTO) 4.8 (2.1-6.9); NEUTROPHILS % 52.3 % (38.7-80.0); PLATELET COUNT 403 x10e3/uL (140-360); RED BLOOD COUNT 4.47 x10e6/uL (3.6-5.1); RED CELL DISTRIBUTION WIDTH 12.3 % (11.7-14.4)
[2019-09-16 01:27] LABS: ALANINE AMINOTRANSFERASE 47 IU/L (0-55); ALBUMIN 4.1 g/dL (3.5-5.0); ALBUMIN/GLOBULIN RATIO 1.2 (0.8-2.0); ALKALINE PHOSPHATASE 71 IU/L (40-150); ANION GAP 15.1 mmol/L (8-16); BLOOD UREA NITROGEN 8 mg/dL (7-26); BUN/CREATININE RATIO 12 (6-25); CALCIUM 9.7 mg/dL (8.4-10.2); CARBON DIOXIDE 24 mmol/L (22-29); CHLORIDE 105 mmol/L (98-107); CREATINE KINASE 74 IU/L (29-168); CREATININE, SERUM 0.66 mg/dL (0.57-1.11); EST GLOMERULAR FILTRATION RATE > 60 ML/MIN (60-); GLUCOSE 90 mg/dL (74-118); LIPASE 60 U/L (8-78); POTASSIUM 4.1 mmol/L (3.5-5.1); SODIUM 140 mmol/L (136-145)
[2019-09-16] MEDS ORDERED: IOPAMIDOL 370 MG/ML 200 ML INFUS..BTL INJ ONE ×2 (01:45→05:22)
[2019-09-16] MEDS ORDERED: SODIUM CHLORIDE 0.9% 50ML 50 ML ONE ×2 (01:45→05:22)
[2019-09-16 02:25] LABS: BILIRUBIN,URINE NEGATIVE (NEGATIVE); CLARITY,URINE CLEAR (CLEAR); COLOR,URINE YELLOW (YELLOW); KETONES,URINE NEGATIVE (NEGATIVE); LEUKOCYTE ESTERASE ,URINE NEGATIVE (NEGATIVE); NITRITE,URINE NEGATIVE (NEGATIVE); PROTEIN,URINE DIPSTICK NEGATIVE (NEGATIVE); URINE UROBILINOGEN 0.2 mg/dL (0.2 - 1)
[2019-09-16 02:37] LABS: BACTERIA,URINE MANY /HPF; EPITHELIAL CELLS,URINE FEW /LPF; TRANSITIONAL EPI CELLS,URINE FEW
[2019-09-16] MEDS ORDERED: ONDANSETRON HCL INJ 2MG/ML 2ML 2 MG/ML VIAL IV STA ×2 (02:56→05:15)
[2019-09-16] MEDS ORDERED: MORPHINE SULFATE INJ 4 MG/ML INJ 1ML IV STA (02:56)
[2019-09-16] MEDS ORDERED: SODIUM CHLORIDE 0.9% 1000ML 1,000 ML ONE (04:01)
--- NOTE | 2019-09-16 04:25 | Diagnostic Imaging Report ---
EXAM: CT Abdomen and Pelvis WITH contrast INDICATION: ^RUQ pain ^[id number] ^6147 COMPARISON: None. TECHNIQUE: Abdomen and pelvis were scanned utilizing a multidetector helical scanner from the lung base to the pubic symphysis after administration of IV contrast. Coronal and sagittal reformations were obtained. Routine protocol was performed. Scan was performed when during portal venous phase. IV CONTRAST: 100 mL of Isovue 370 ORAL CONTRAST: None COMPLICATIONS: None RADIATION DOSE: Total DLP: 594.4 mGy*cm Estimated effective dose: (DLP x 0.015 x size factor) mSv CTDIvol has been reviewed. It is below the limits set by the Radiation Protocol Committee (RPC). Dose modulation, iterative reconstruction, and/or weight based adjustment of the mA/kV was utilized to reduce the radiation dose to as low as reasonably achievable. FINDINGS: LINES and TUBES: None. LOWER THORAX: Unopacified pulmonary vessel on the most superior image of the study. The remainder of the imaged pulmonary vessels are opacified HEPATOBILIARY: Approximately 1.7 cm hypoattenuating lesion with peripheral enhancement in the right hepatic lobe.. No biliary ductal dilation. GALLBLADDER: Gallbladder is contracted. No pericholecystic inflammatory changes. SPLEEN: No splenomegaly. PANCREAS: No focal masses or ductal dilatation. ADRENALS: No adrenal nodules KIDNEYS/URETERS: Kidneys enhance symmetrically. No hydronephrosis. No cystic or solid mass lesions. No stones. GI TRACT: No abnormal distention, wall thickening, or evidence of bowel obstruction. The appendix is not identified, but no inflammatory changes in the right lower quadrant. Colonic diverticulosis without evidence of acute diverticulitis. Nonspecific hyperdensity within the cecum may represent ingested contents. PELVIC ORGANS/BLADDER: Status post hysterectomy. Urinary bladder is nondistended. LYMPH NODES: No lymphadenopathy. VESSELS: Unremarkable. PERITONEUM / RETROPERITONEUM: No free air or fluid. BONES: Unremarkable. SOFT TISSUES: Unremarkable. IMPRESSION: 1. A single unopacified vessel is partially imaged in the right lower lobe on the most superior slice of the study. While this could be produced by artifact, PE protocol chest CT is recommended to exclude pulmonary embolus. 2. 1.7 cm hypoattenuating lesion with partial peripheral enhancement. This lesion may represent a hepatic hemangioma, but is incompletely characterized on single phase exam. Nonemergent outpatient liver protocol CT or MR is recommended for characterization. 3. Colonic diverticulosis without evidence of acute diverticulitis. Critical results were discussed with Dr. Cruz on 09/16/2019 at 4:20 AM. Signed by: Mike Frank MD on 09/16/2019 4:22 AM
[2019-09-16] MEDS ORDERED: MORPHINE SULFATE 2 MG/ML SYR 1ML IV STA (05:15)
[2019-09-16] MEDS ORDERED: CEFTRIAXONE SOD 1 GM/NS 50 ML 50 ML IV ONE (06:00)
--- NOTE | 2019-09-16 06:10 | Diagnostic Imaging Report ---
EXAM: CT Chest WITH contrast 09/16/2019 5:31 AM INDICATION: ^pulmonary opacificatoin COMPARISON: CT from today TECHNIQUE: Chest was scanned utilizing a multidetector helical scanner from the lung apex through the level of the adrenal glands with administration of IV contrast. Coronal and sagittal reformations were obtained. Routine protocol was performed. IV CONTRAST: 100 mL of Isovue 370 COMPLICATIONS: None RADIATION DOSE: Total DLP: 504.12 mGy*cm Estimated effective dose: (DLP x 0.014 x size factor) mSv CTDIvol has been reviewed. It is below the limits set by the Radiation Protocol Committee (RPC). Dose modulation, iterative reconstruction, and/or weight based adjustment of the mA/kV was utilized to reduce the radiation dose to as low as reasonably achievable. FINDINGS: LINES/ TUBES: None. LUNGS AND AIRWAYS: The lungs are unremarkable. Airways are normal. PLEURA: The pleural spaces are clear. HEART AND MEDIASTINUM: The thyroid gland is normal. No mediastinal, hilar or axillary lymphadenopathy. The heart is normal in size. There is no pericardial effusion. Satisfactory opacification of the pulmonary arteries. No pulmonary emboli. Questioned finding on a recent abdomen and pelvis CT, likely artifactual. UPPER ABDOMEN: Unremarkable. BONES: The visualized bony thorax is within normal limits. SOFT TISSUES: Unremarkable. IMPRESSION: No pulmonary embolus. Signed by: Mike Frank MD on 09/16/2019 6:07 AM
--- NOTE | 2019-09-16 06:57 | NUR ---
walking rounds with oswald coy
--- NOTE | 2019-09-16 07:05 | NUR ---
Report received from Beto STAPLETON. Pt resting quietly on stretcher, no distress noted. Awaiting further orders/disposition.
[2019-09-16 07:19] VITALS: BP 130/62
== END 2019-09-16 07:30 | disposition home or self-care (01) ==
LOC: ER 23:08
DX: R10.11 Right upper quadrant pain (principal); N39.0 Urinary tract infection, site not specified; R11.2 Nausea with vomiting, unspecified; R19.7 Diarrhea, unspecified; F17.210 Nicotine dependence, cigarettes, uncomplicated
CPT/HCPCS: 36415; 71260; 74177; 80053; 81001; 82550; 82553; 83690; 84484; 85025; 93005; 99284; J0696; J2270 ×2; J2405; J7030; Q9967